=== PATIENT | male | born 1960 | race American Indian/Alaskan Native ===

== ENCOUNTER 2018-07-26 06:53 | Day surgery (SDC) | payer MEDICARE ==
[2018-07-19 13:51] VITALS: BMI 27.1
[2018-07-26] MEDS ORDERED: Propofol 10 mg/ml Inj (20 ML) ONE (08:55)
[2018-07-26] MEDS ORDERED: Sodium Chloride 0.9% 1,000 ML IV SCH (09:45)
[2018-07-26 10:15] VITALS: PULSE 61
[2018-07-26 10:33] VITALS: BP 146/69; RESP 16; TEMP 98; O2SAT 100
== END 2018-07-26 11:00 | disposition home or self-care (01) ==
LOC: ENDO 06:53
PROVIDERS: ATTEND Specialist
DX: Z12.11 Encounter for screening for malignant neoplasm of colon (principal); K57.30 Diverticulosis of large intestine without perforation or abscess without bleeding; D12.2 Benign neoplasm of ascending colon; D12.3 Benign neoplasm of transverse colon; K64.8 Other hemorrhoids; N18.9 Chronic kidney disease, unspecified; M10.9 Gout, unspecified; Z88.5 Allergy status to narcotic agent; Z86.010 Personal history of colon polyps; Z85.51 Personal history of malignant neoplasm of bladder

== ENCOUNTER 2019-01-01 12:45 | Outpatient (CLI) | payer MEDICARE | END 2019-01-01 12:46 | disposition home or self-care (01) | LOC: LAB 12:45 ==